=== PATIENT | female | born 1965 | race Caucasian/White ===

== ENCOUNTER 2023-04-27 17:41 | Inpatient (IN) | payer MEDICARE ==
[~2023-04-27] VITALS: Ht 170.2 cm; Wt 85.1 kg
[2023-04-27] MEDS ORDERED: GuaiFENesin/D-METHORPHAN [SUGAR-FREE] 200-20MG/10 ML SYRUP UDCUP PO PRN (21:00)
[2023-04-27] MEDS ORDERED: MAGNESIUM HYDROXIDE SUSPENSION 30 ML UDCUP PO PRN (21:00)
[2023-04-27] MEDS ORDERED: ZOLPIDEM TARTRATE 10 MG TABLET PO PRN (21:00)
[2023-04-27] MEDS ORDERED: MAG HYDROX/AL HYDROX/SIMETH ES 30 ML SUSPENSION UDCUP PO PRN (21:00)
[2023-04-27] MEDS ORDERED: PROMETHAZINE HCL 25 MG TABLET PO PRN (21:00)
[2023-04-27] MEDS ORDERED: LOPERAMIDE HCL 2 MG CAPSULE PO PRN (21:00)
[2023-04-27] MEDS ORDERED: ACAMPROSATE CALCIUM 333 MG DR TABLET PO SCH (21:00)
[2023-04-27] MEDS ORDERED: HydrOXYzine PAMOATE 50 MG CAPSULE PO PRN (21:00)
[2023-04-27] MEDS ORDERED: ACETAMINOPHEN 325 MG TABLET PO PRN (21:00)
[2023-04-27] MEDS ORDERED: LORazepam 2 MG TABLET PO PRN (21:00)
[2023-04-27] MEDS ORDERED: OLANZapine 5 MG RAPDIS TABLET PO PRN (21:00)
[2023-04-27] MEDS: OLANZapine 5 MG RAPDIS TABLET PO SCH ×2 (21:00→21:33)
[2023-04-27 21:23] VITALS: BP 137/73; PULSE 79; RESP 20; TEMP 96.9
[2023-04-27 21:26] VITALS: BP 137/73; PULSE 79; RESP 20; TEMP 96.9; O2SAT 91
[2023-04-27] MEDS ORDERED: PALIPERIDONE PALMITATE 234 MG/1.5 ML SYRINGE IM ONE (22:00)
[2023-04-27] MEDS: MELATONIN 5 MG TABLET PO SCH (22:00)
[2023-04-27] MEDS ORDERED: CYANOCOBALAMIN 1,000 MCG/ML VIAL IM ONE (22:00)
[2023-04-27] MEDS ORDERED: DEXTROSE 50%-WATER 25 GM/50 ML SYRINGE IVP PRN (22:30)
[2023-04-27] MEDS ORDERED: PNEUMOCOCCAL VACCINE POLYVALENT 0.5 ML VIAL [PPSV23] IM. ONE (22:45)
[2023-04-27] MEDS: BUDESONIDE 0.5 MG/2 ML NEB SOLUTION NEB SCH (23:23)
[2023-04-27 23:30] VITALS: PULSE 77; RESP 18; O2SAT 91
[2023-04-28] MEDS: LEVOTHYROXINE SODIUM 50 MCG TABLET PO SCH (06:22)
[2023-04-28] MEDS: ACAMPROSATE CALCIUM 333 MG DR TABLET PO SCH ×3 (08:51→18:18)
[2023-04-28] MEDS: DOCUSATE SODIUM 100 MG CAPSULE PO SCH ×2 (08:51→17:02)
[2023-04-28] MEDS: FOLIC ACID 1 MG TABLET PO SCH (08:52)
[2023-04-28] MEDS: FAMOTIDINE 20 MG TABLET PO SCH (08:52)
[2023-04-28] MEDS: THIAMINE 100 MG TABLET PO SCH ×2 (08:52→17:02)
[2023-04-28] MEDS: OMEGA-3/DHA/EPA/FISH OIL 1,000 MG CAPSULE PO SCH (08:52)
[2023-04-28] MEDS: MULTIVITAMINS WITH MINERALS, THERAPEUTIC TABLET PO SCH (08:53)
[2023-04-28] MEDS: BUDESONIDE 0.5 MG/2 ML NEB SOLUTION NEB SCH ×2 (15:00→21:00)
[2023-04-28 20:52] VITALS: RESP 18; TEMP 97.8
[2023-04-28] MEDS ORDERED: OLANZapine 10 MG RAPDIS TABLET PO SCH (21:00)
[2023-04-28] MEDS: MELATONIN 5 MG TABLET PO SCH (21:47)
[2023-04-28] MEDS: INSULIN LISPRO 100 UNITS/ML SQ PRN (22:08)
[2023-04-28 22:16] LABS: GLUCOMETER DEV NAME(LOC) 3E.C
[2023-04-29 04:56] VITALS: RESP 18; O2SAT 97
[2023-04-29] MEDS: LEVOTHYROXINE SODIUM 50 MCG TABLET PO SCH (06:19)
[2023-04-29] MEDS: INSULIN LISPRO 100 UNITS/ML SQ PRN ×2 (06:37→12:46)
[2023-04-29 07:16] LABS: GLUCOMETER DEV NAME(LOC) 3E.C
[2023-04-29] MEDS: BUDESONIDE 0.5 MG/2 ML NEB SOLUTION NEB SCH ×2 (09:00→12:31)
[2023-04-29] MEDS: ACAMPROSATE CALCIUM 333 MG DR TABLET PO SCH ×2 (10:45→13:46)
[2023-04-29] MEDS: OMEGA-3/DHA/EPA/FISH OIL 1,000 MG CAPSULE PO SCH (10:46)
[2023-04-29] MEDS: THIAMINE 100 MG TABLET PO SCH (10:46)
[2023-04-29] MEDS: FAMOTIDINE 20 MG TABLET PO SCH (10:46)
[2023-04-29] MEDS: DOCUSATE SODIUM 100 MG CAPSULE PO SCH (10:46)
[2023-04-29] MEDS: FOLIC ACID 1 MG TABLET PO SCH (10:46)
[2023-04-29] MEDS: MULTIVITAMINS WITH MINERALS, THERAPEUTIC TABLET PO SCH (10:47)
[2023-04-29 12:10] LABS: GLUCOMETER DEV NAME(LOC) 3E.I 2
[2023-04-29 12:31] VITALS: PULSE 76; RESP 20; O2SAT 83
[2023-04-29 12:43] VITALS: PULSE 76; RESP 20; O2SAT 92
[2023-04-29] MEDS ORDERED: OLAN10TA26 PO (16:29)
[2023-04-29] MEDS ORDERED: MELA5TAB40 PO (16:29)
[2023-05-01] MEDS ORDERED: PALIPERIDONE PALMITATE 156 MG/ML SYRINGE IM ONE (09:00)
== END 2023-04-29 15:00 | disposition short-term general hospital (02) | DRG 885 ==
LOC: 3EX 20:53
PROVIDERS: ADMIT Psychiatry & Neurology Psychiatry; ATTEND Psychiatry & Neurology Psychiatry
PROC: GZHZZZZ Group Psychotherapy (ICD-10-PCS; principal; 2023-04-27)
PROC: GZ51ZZZ Individual Psychotherapy, Behavioral (ICD-10-PCS; 2023-04-27)
DX: F25.9 Schizoaffective disorder, unspecified (principal); F17.210 Nicotine dependence, cigarettes, uncomplicated; E03.9 Hypothyroidism, unspecified; K21.9 Gastro-esophageal reflux disease without esophagitis; F29 Unspecified psychosis not due to a substance or known physiological condition; J44.9 Chronic obstructive pulmonary disease, unspecified; J98.4 Other disorders of lung; R09.02 Hypoxemia; Z79.899 Other long term (current) drug therapy; Z91.148 Patient's other noncompliance with medication regimen for other reason; Z63.9 Problem related to primary support group, unspecified; Z65.3 Problems related to other legal circumstances
CPT/HCPCS: 82962; 87081; 92610; 94640; G0378; J3420; Q9967

== ENCOUNTER 2025-04-18 11:32 | Emergency (ER) | payer MEDICARE, MEDICAID ==
[~2025-04-18] VITALS: Ht 170.2 cm; Wt 72.0 kg
[~2025-04-18 11:32] MED LIST: ACET-2247 PO; ALBU2.5V39 NEB; BENZ-227 PO; BISA10SU11 PR; DIVA-153 PO; DOCU-385 PO; GUAIF600 PO; IPRA0.2S49 NEB; MAGN-169 PO; MELA5TAB40 PO; OLAN10TA74 PO; PANT-31 PO; PRED-554 PO
[2025-04-18 12:11] VITALS: TEMP 97.6
[2025-04-18] MEDS: BACITRACIN 0.9 GM PACKET OINTMENT TP ONE (12:24)
[2025-04-18 12:31] LABS: COVID AG,FIA SOURCE NASAL SWAB
[2025-04-18 12:49] LABS: SARS-COV2 (COVID) ANTIGEN,FIA Negative (Negative)
[2025-04-18 13:25] VITALS: BP 115/69; PULSE 81; RESP 18; O2SAT 98
== END 2025-04-18 14:58 | disposition home or self-care (01) ==
LOC: EMS 11:34
DX: F20.9 Schizophrenia, unspecified (principal); J43.9 Emphysema, unspecified; E03.9 Hypothyroidism, unspecified; F31.9 Bipolar disorder, unspecified; F17.210 Nicotine dependence, cigarettes, uncomplicated; K21.9 Gastro-esophageal reflux disease without esophagitis; Z88.8 Allergy status to other drugs, medicaments and biological substances; Z79.52 Long term (current) use of systemic steroids; Z79.899 Other long term (current) drug therapy; Z20.822 Contact with and (suspected) exposure to COVID-19
CPT/HCPCS: 99285; Z7502; Z7610